=== PATIENT | female | born 2000 | race Two or more races ===

== ENCOUNTER 2022-03-18 04:07 | Emergency (ER) | payer OTHER ==
[~2022-03-18] VITALS: Ht 162.6 cm; Wt 81.6 kg
--- NOTE | 2022-03-18 04:28 | NUR ---
BIB TO ER BED 10. AAOX4. NOT IN RESP DISTRESS. CRYING. BROUGHT IN FOR ANXIETY ATTACK THAT IS INDUCED BY A HEADACHE. PT HAS BEEN FEELING THIS WAY FOR THE PAST 2 DAYS. PAIN IS REPORTED TO BE AT THE BACK OF THE HEAD. 08/03. AWAITING MD FOR EVAL. PT ON MONITOR
[2022-03-18] MEDS ORDERED: diphenhydrAMINE HCL 50 MG/ML VIAL ONE (05:20)
[2022-03-18] MEDS ORDERED: methylPREDNISolone SOD SUCC 125 MG/2ML VIAL ONE (05:20)
[2022-03-18] MEDS ORDERED: METOCLOPRAMIDE HCL 10 MG/2 ML VIAL ONE (05:21)
[2022-03-18] MEDS ORDERED: KETOROLAC TROMETHAMINE INJ 30 MG/ML VIAL ONE (05:21)
[2022-03-18] MEDS: KETOROLAC TROMETHAMINE INJ 30 MG/ML VIAL IV ONE (05:34)
[2022-03-18] MEDS: methylPREDNISolone SOD SUCC 125 MG/2ML VIAL IV ONE (05:34)
[2022-03-18] MEDS: diphenhydrAMINE HCL 50 MG/ML VIAL IV ONE (05:34)
[2022-03-18] MEDS: METOCLOPRAMIDE HCL 10 MG/2 ML VIAL IV ONE (05:34)
[2022-03-18] MEDS: IV NS 0.9% 500 ML BAG IV ONE (05:34)
[2022-03-18] MEDS ORDERED: ALBU18HF2 INH (05:36)
[2022-03-18] MEDS ORDERED: LORAZEPAM INJ 2 MG/ML VIAL ONE (05:37)
[2022-03-18] MEDS: LORAZEPAM INJ 2 MG/ML VIAL IV ONE (05:43)
--- NOTE | 2022-03-18 06:21 | NUR ---
WAS AT THE BEDSIDE TALKING TO PT WHEN SHE VERBALIZED THAT SHE IS DEPRESSED. VERBALIZED TO THAT SHE WANTS VOLUNTARY PSYCH ADMISSION FOR PASSIVE SUICIDAL IDEATION PER
--- NOTE | 2022-03-18 06:28 | NUR ---
URINE COLLECTED, COVID SWAB DONE AND SENT TO LAB
[2022-03-18 07:05] LABS: BASOPHILS % (AUTO) 0.5 % (0.0-2.0); EOSINOPHILS % (AUTO) 0.6 % (0.0-6.0); HEMATOCRIT 41 % (33-45); HEMOGLOBIN 13.5 g/dL (11.5-14.8); LYMPHOCYTES % (AUTO) 22.5 % (20.0-44.0); MEAN CORPUSCULAR HGB CONC 33 g/dl (31.0-36.0); MEAN CORPUSCULAR VOLUME 78 fL (82-100); MONOCYTES # (AUTO) 0.5 K/uL (0.1-1.30); NEUTROPHILS # (AUTO) 6.5 K/uL (1.8-8.9); NEUTROPHILS % (AUTO) 71.4 % (43.0-81.0); PLATELET COUNT (AUTO) 257 K/uL (150-450); RED BLOOD CELL COUNT(AUTO) 5.19 MIL/uL (4.0-5.2); WHITE BLOOD COUNT (AUTO) 9.1 K/uL (4.3-11.0)
[2022-03-18 07:24] LABS: ALANINE AMINOTRANSFERASE 31 U/L (12-78); ALBUMIN 3.6 g/dL (3.4-5.0); ALKALINE PHOSPHATASE 80 U/L (46-116); ASPARTATE AMINOTRANSFERASE 17 U/L (15-37); BILIRUBIN,DIRECT 0.1 mg/dL (0.0-0.2); BILIRUBIN,TOTAL 0.4 mg/dL (0.2-1.0); CARBON DIOXIDE 14 mmol/L (21-32); CHLORIDE 106 mmol/L (98-107); CREATININE 0.7 mg/dL (0.6-1.3); GLUCOSE 113 mg/dL (74-106); POTASSIUM 3.8 mmol/L (3.5-5.1); SODIUM SERUM 140 mmol/L (136-145); TOTAL PROTEIN, SERUM 7.6 g/dL (6.4-8.2); UREA NITROGEN, BLOOD 10 mg/dL (7-18)
[2022-03-18 07:28] LABS: BILIRUBIN,URINE NEGATIVE (NEGATIVE); COLOR,URINE YELLOW (YELLOW); LEUKOCYTE ESTERASE ,URINE NEGATIVE (NEGATIVE); NITRITE, URINE NEGATIVE (NEGATIVE); PH,URINE 7.5 (5.0-8.0); PROTEIN,URINE NEGATIVE (NEGATIVE); UGLUCOSE NEGATIVE (NEGATIVE)
[2022-03-18 07:32] LABS: ACETAMINOPHEN < 10 ug/ml (10-30); ALCOHOL, BLOOD < 3 mg/dL (0-0)
[2022-03-18 08:22] LABS: CALCIUM, SERUM 9.1 mg/dL (8.5-10.1)
[2022-03-18 09:23] LABS: BACTERIA,URINE Moderate /HPF (None Seen); RBC,URINE 0-2 /HPF (0-2); SQUAMOUS EPITHELIAL CELL,UR Moderate /HPF (None Seen); WBC,URINE NONE SEEN /HPF (0-3)
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
[2022-03-18] MEDS ORDERED: ALPR0.5T PO (10:48)
[2022-03-18 11:00] VITALS: BP 129/80
--- NOTE | 2022-03-18 11:01 | NUR ---
Patient discharged to home in stable condition. Written and verbal after care instructions given. Patient verbalizes understanding of instruction.IV removed. Catheter intact and site benign. Pressure and 4x4 applied to site. No bleeding noted.
== END 2022-03-18 11:01 | disposition home or self-care (01) ==
LOC: ER 04:09
DX: M54.81 Occipital neuralgia (principal); J45.909 Unspecified asthma, uncomplicated; F32.A Depression, unspecified; Z20.822 Contact with and (suspected) exposure to COVID-19
CPT/HCPCS: 36415; 71045; 80048; 80076; 80143; 80307; 80320; 81001; 85025; 87086; 87426; 93005; 96374; 96375; 99285; C9803; J1200; J1885; J2060; J2765; J2930; J7030 ×2; G0480

== ENCOUNTER 2022-04-26 10:13 | Emergency (ER) | payer OTHER ==
[~2022-04-26] VITALS: Ht 165.1 cm; Wt 83.9 kg
[~2022-04-26 10:13] MED LIST: ALBU18HF2 INH; ALPR0.5T PO
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
[2022-04-26] MEDS ORDERED: methylPREDNISolone SOD SUCC 125 MG/2ML VIAL IV ONE (11:00)
[2022-04-26] MEDS ORDERED: FAMOTIDINE/PF INJ 20 MG/2 ML VIAL IV ONE ×2 (11:00→11:10)
[2022-04-26] MEDS ORDERED: methylPREDNISolone SOD SUCC 125 MG/2ML VIAL ONE (11:10)
[2022-04-26] MEDS ORDERED: FAMO-131 PO (12:26)
[2022-04-26] MEDS ORDERED: EPIN0.3P3 IM (12:26)
[2022-04-26] MEDS ORDERED: PRED20TA PO (12:26)
[2022-04-26 12:49] VITALS: BP 124/71
--- NOTE | 2022-04-26 12:49 | NUR ---
Patient discharged to home in stable condition. Written and verbal after care instructions given. Patient verbalizes understanding of instruction.
== END 2022-04-26 12:49 | disposition home or self-care (01) ==
LOC: ER 10:31
DX: T78.40XA Allergy, unspecified, initial encounter (principal); J45.909 Unspecified asthma, uncomplicated; Z88.8 Allergy status to other drugs, medicaments and biological substances; Z79.899 Other long term (current) drug therapy; X58.XXXA Exposure to other specified factors, initial encounter
CPT/HCPCS: 96374; 96375; 99284; J2930; J3490